=== PATIENT | male | born 1975 | race Caucasian/White ===

== ENCOUNTER → 2019-11-20 11:54 | Outpatient (CLI) | payer OTHER | END | disposition home or self-care (01) | LOC: D.RAD 11:54 | PROVIDERS: ATTEND Podiatrist | DX: M19.071 Primary osteoarthritis, right ankle and foot (principal) ==

== ENCOUNTER → 2019-12-08 11:52 | Outpatient (CLI) | payer OTHER ==
[~2019-12-08 11:52] MED LIST: FLINTSTONES WIT18 MG PO
== END | disposition home or self-care (01) ==
LOC: D.LABREF 11:52
PROVIDERS: ATTEND Podiatrist
DX: Z11.59 Encounter for screening for other viral diseases (principal)

== ENCOUNTER 2019-12-10 05:20 | Day surgery (SDC) | payer OTHER ==
[~2019-12-10] VITALS: Ht 152.4 cm; Wt 83.9 kg
--- NOTE | ~2019-12-10 | OP ---
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 PROCEDURES: 1. Flexor tenotomy, right foot. 2. First met head resection, right foot. ANESTHESIA: General with local infiltrate around the first ray 20 cc total, 1:1 mix of lidocaine and Marcaine plain. HEMOSTASIS: Right ankle Esmarch. PREOPERATIVE DETAILS: The patient was taken to the OR and placed on the operating table in a supine position. This was followed by induction of general anesthesia and infiltration of local anesthetic. The right lower extremity was then prepped and draped in the usual aseptic technique followed by exsanguination and an application of the Esmarch around the ankle. PROCEDURE NUMBER 1: Flexor tenotomy, right foot. A 15 blade was used to create a small stab incision on the plantar aspect of the right foot where the first metatarsal and hallux meet. The incision was deepened down, the flexor tendon was isolated and transected allowing some reduction of the contracture. There was noted to still be contracture of the joint due to the dorsiflexed first metatarsal not allowing the hallux to move dorsally in a normal fashion. PROCEDURE #2: Right first metatarsal head resection. A 15-blade was used to create a 3 cm linear incision over the dorsal aspect of the first metatarsal head. The incision deepened down through subcutaneous tissue to the first MPJ. A linear incision was made in the dorsal periosteum as well as the joint capsule. The head of the first metatarsal was delivered. A McGlamry scoop elevator was used to free the metatarsal head. A sagittal saw was used to resect it. The wound was flushed. The rough areas were smoothed. The capsule was repaired with 2-0 Vicryl, the subcutaneous tissue with 4-0 Rapide and the skin was closed with 4-0 Rapide in a subcuticular technique. The plantar wound was also closed with 4-0 Rapide in a simple interrupted technique followed by Dermabond. It was noted upon completion of the surgery that the contracture was reduced entirely allowing normal range of motion of the first MPJ. Adaptic, 4 x 4 and Conform were used to dress the wound followed by Coban. The Esmarch was removed. POSTOPERATIVE DETAILS: The patient tolerated the procedure well and left the OR with vital signs stable and vascular status at preoperative levels. The patient was transported to recovery per anesthesia in stable condition. 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
[2019-12-10] MEDS ORDERED: FLINTSTONES WIT18 MG PO (05:38)
[2019-12-10 05:55] VITALS: BP 121/75; Ht 152.4 cm; Wt 83.9 kg
== END 2019-12-10 09:20 | disposition home or self-care (01) ==
LOC: D.OPS 05:20
PROVIDERS: ATTEND Podiatrist
DX: M24.574 Contracture, right foot (principal)